=== PATIENT | female | born 1995 | race Caucasian/White ===

== ENCOUNTER 2017-01-06 18:12 | Emergency (ER) | payer MEDICAID ==
[2017-01-06 18:20] VITALS: TEMP 98.6; O2SAT 98
--- NOTE | 2017-01-06 18:23 | EDPHY ---
H & P Stated Complaint: CP, SOB starting yesterday HPI/ROS: CHIEF COMPLAINT: Chest pain and shortness of breath HISTORY OF PRESENT ILLNESS: The patient is a 21 y/o female who complains of chest pain and shortness of breath for one day. Pain is localized medially. Hurts to breathe deeply. Her symptoms became exacerbated while exerting herself [place] the dog park today. The pain is also worsened when she twists her upper body. She reports having diarrhea yesterday and today, with about 3 loose bowel movements a day. She also had a headache this morning, but this resolved spontaneously. She has not taken anything for the chest pain. Denies recent travel or using control/ hormones. Denies fever, cough, sore throat, leg pain, leg swelling. Her father had a blood clot in his leg--no other details known. Denies smoking. REVIEW OF SYSTEMS: A ten point review of systems was performed and is negative with the exception of the items mentioned in the HPI. Past medical history: Denies Past surgical history: Denies Family history: Father had a blood clot in leg Social history: Friend at bedside Graduated from college in September Social use of alcohol General Appearance: Alert. Vital signs reviewed. Blood pressure 128/95. Eyes: Pupils equal and round, no conjunctival injection, no discharge. Anicteric. ENT, Mouth: Mucous membranes are moist, no oropharyngeal erythema or edema. Neck: No lymphadenopathy, supple. Respiratory: Shallow breaths. Lungs are clear to auscultation; no wheezes, rales, or rhonchi. Cardiovascular: Regular rate and rhythm; no murmur, rub, or gallop. Thorax: Mild tenderness to sternal palpation, no crepitus Gastrointestinal: Abdomen is soft and nontender, no masses or organomegaly, bowel sounds normal. Skin: Warm and dry, no rashes on exposed skin, normal color. Back: Nontender to palpation over the thoracolumbar spine. No CVAT. Extremities: No lower extremity edema, no calf tenderness or swelling. Neurological: Alert and oriented. Moving all four extremities easily and equally. Psychiatric: Normal affect. - Personal History LMP (Females 10-55): 1-7 Days Ago Current Tetanus/Diphtheria Vaccine: Yes Current Tetanus Diphtheria and Acellular Pertussis (TDAP): Yes Tetanus Vaccine Date: < 10 years - Medical/Surgical History Hx Asthma: No Hx Chronic Respiratory Disease: No Hx Diabetes: No Hx Cardiac Disease: No Hx Renal Disease: No Hx Cirrhosis: No Hx Alcoholism: No Hx HIV/AIDS: No Hx Splenectomy or Spleen Trauma: No Other PMH: none reported - Social History Smoking Status: Never smoked Constitutional: Initial Vital Signs Temperature (C) 37.0 C 01/06/17 18:18 Heart Rate 75 01/06/17 18:18 Respiratory Rate 18 01/06/17 18:18 Blood Pressure 128/95 H 01/06/17 18:18 O2 Sat (%) 98 01/06/17 18:18 O2 Delivery Mode Room Air Allergies/Adverse Reactions: No Known Allergies Allergy (Unverified 01/06/17 18:18) Home Medications: Medication Instructions Recorded NK [No Known Home Meds] 01/06/17 Medical Decision Making - Diagnostics Imaging: Discussed imaging studies w/ meter inspector Radiologist, I viewed and interpreted images myself ED Course/Re-evaluation: The patent is a 21 y/o female who presents with chest pain and shortness of breath for one day. She has mild tenderness to her sternum upon palpation with no crepitus. Her father had a blood clot in his leg. Plan on chest x-ray, EKG, and labs. Patient declines pain medication at this time. EKG interpreted by ED physician, myself. Sinus rhythm without acute ischemic changes with a rate of 89. 1914: Reassessed patient and discussed imaging and laboratory results. There is no pneumothorax or signs of pneumonia on CXR. The D-dimer is normal. She is low risk for PE based upon Wells score and PERC rule. Discussed possible causes of her pain including/ pericarditis (no EKG or PE findings consistent with this diagnosis) and costal chondritis. Plan on 15mg IV Toradol for pain management. 2015: Reassessed patient and referred for follow-up with [facility] or Dr. Rita Arenas. Return precautions provided. Advised NSAIDs for symptomatic treatment.Patient is comfortable with this plan. Differential Diagnosis: Chest pain including but not limited to pericarditis, costochondritis, myocarditis, myocardial ischemia, pulmonary embolus, chest wall pain, pleural inflammation and pulmonary infectious causes. - Data Points Laboratory Results: Laboratory Results 01/06/17 18:20 01/06/17 18:20 Medications Given: Discontinued Medications Ketorolac Tromethamine (Toradol) 30 mg IVP EDNOW ONE Stop: 01/06/17 19:21 Last Admin: 01/06/17 19:24 Dose: 30 mg Departure - Departure Disposition: Home, Routine, Self-Care Clinical Impression: Chest pain Qualifiers: Chest pain type: chest pain on breathing Qualified Code(s): R07.1 - Chest pain on breathing; R07.81 - Pleurodynia Condition: Good Instructions: Chest Pain (ED) Additional Instructions: 1.Adult Pain Control: We recommend Ibuprofen (Motrin,Advil) for pain control. Your dose is: Ibuprofen [800]mg 3 times a day with food 2. Follow up with your primary care provider for unimproved symptoms in the next 4-7 days. [facility] at [facility]. 3. Return to the ED if you experience fever, cough, shortness of breath, severe intractable pain, or other worsening of your symptoms. Referrals: Gabbi Arenas MD [[facility] [place] Provider] - As per Instructions [facility],. [Clinic] - As per Instructions Report Scribed for: Jamaica Pandey Report Scribed by: Zayra Pacheco Date of Report: 01/06/17 Time of Report: 19:07 Physician Review and Approval Statement: 01/06/17 18:23 Portions of this note were transcribed by the medical laboratory assistant. I, Dr. Jamaica Pandey, personally performed the history, physical exam, and medical decision- making; and confirmed the accuracy of the information in the transcribed note.
--- NOTE | 2017-01-06 18:29 | CPEKG ---
Heart Rate: 89 RR Interval: 674 P-R Interval: 136 QRSD Interval: 86 QT Interval: 356 QTC Interval: 434 P [place]: 75 QRS [place]: 83 T Wave [place]: 48 EKG Severity - NORMAL ECG - EKG Impression: SINUS RHYTHM Electronically Signed By: Jamaica Pandey 06-Jan-2017 21:24:19
[2017-01-06 18:46] LABS: % IMMATURE GRANULYOCYTES 0.3 % (0.0-1.1); ABSOLUTE IMMATURE GRANULOCYTES 0.03 10^3/uL (0.00-0.10); ADD DIFF? NO; ADD MORPH? NO; ADD SCAN? NO; ATYPICAL LYMPHOCYTE FLAG 0 (0-99); FRAGMENT RBC FLAG 0 (0-99); HEMATOCRIT 45.4 % (38.0-47.0); HEMOGLOBIN 15.2 g/dL (12.6-16.3); LEFT SHIFT FLG 0 (0-99); LIPEMIA HEMOLYSIS FLAG 80 (0-99); MEAN CELL HEMOGLOBIN 31.9 pg (27.9-34.1); MEAN CELL HEMOGLOBIN CONCENTR. 33.5 g/dL (32.4-36.7); MEAN CELL VOLUME 95.4 fL (81.5-99.8); MEAN PLATELET VOLUME 10.3 fL (8.7-11.7); PLATELET CLUMPS FLAG 0 (0-99); PLATELET COUNT 353 10^3/uL (150-400); RED BLOOD CELL COUNT 4.76 10^6/uL (4.18-5.33)
[2017-01-06 18:54] LABS: ANION GAP 15 mEq/L (8-16); CALCIUM 10.1 mg/dL (8.5-10.4); CARBON DIOXIDE 21 mEq/l (22-31); CHLORIDE 104 mEq/L (97-110); CREATININE 0.9 mg/dL (0.6-1.0); GLOMERULAR FILTRATION RATE > 60; GLUCOSE 84 mg/dL (70-100); POTASSIUM 4.3 mEq/L (3.5-5.2); SODIUM 140 mEq/L (134-144)
[2017-01-06] MEDS ORDERED: KETOROLAC 30 MG/1 ML SDV IVP ONE (19:20)
[2017-01-06 20:42] VITALS: BP 112/68; PULSE 85; RESP 16
== END 2017-01-06 20:42 | disposition home or self-care (01) ==
DX: R07.81 Pleurodynia (principal); R07.1 Chest pain on breathing
CPT/HCPCS: 96374; J1885